=== PATIENT | female | born 1975 | race Hispanic/Latino ===

== ENCOUNTER 2023-01-26 04:20 | Inpatient (IN) | payer SELFPAY ==
[2023-01-26] MEDS ORDERED: Aspirin Chewable 81 MG TAB ONE (04:27)
[2023-01-26] MEDS ORDERED: Nitroglycerin 2% Ointment 1 INCH/1 GM Packet ONE (04:32)
[2023-01-26] MEDS ORDERED: Ondansetron PF 4 MG/2 ML Vial ONE ×2 (04:32→06:12)
[2023-01-26] MEDS ORDERED: Morphine 4 MG/ML VIAL ONE (04:33)
[2023-01-26 04:43] LABS: #Eosinphils 0.1 thou/uL (0.0-0.7); #Monocytes 0.6 thou/uL (0.11-0.59); #Neutrophils 8.1 thou/uL (1.40-6.50); %Basophils 0.2 % (0.0-1.0); %Eosinophils 1.3 % (0.0-10.0); %Lymphocytes 16.6 % (21.0-51.0); %Monocytes 5.5 % (0.0-10.0); %Neutrophils 75.9 % (42.0-75.0); Hemoglobin 10.8 g/dL (12.0-16.0); Mean Corpuscular HGB CONC 31.1 g/dL (32.0-36.0); Mean Corpuscular Volume 89.9 fl (78.0-98.0); Mean Platelet Volume 10.1 fL (7.4-10.4); Platelet Count 389 10x3/uL (130-400); RBC Distribution Width 15.2 % (11.5-14.5); Red Blood Cell (RBC) Count 3.86 mill/uL (4.20-5.40); White Blood Cell (WBC) Count 10.7 10x3/uL (4.8-10.8)
[2023-01-26] MEDS ORDERED: Heparin 10,000 UNITS/ 10 ML VIAL ONE ×2 (04:50→11:59)
[2023-01-26] MEDS ORDERED: Heparin 25,000 UNITS/D5W 500 ml bag ONE (04:50)
[2023-01-26] MEDS ORDERED: LORazepam 2 MG/ML SYR.(CARPUJECT) ONE (04:51)
[2023-01-26] MEDS ORDERED: Loperamide HCl 2 MG CAP ONE (04:51)
[2023-01-26] MEDS ORDERED: fentaNYL 50 mcg/mL 1 mL Vial ONE ×2 (04:56→11:58)
[2023-01-26 05:14] LABS: ALT (SGPT) 22 U/L (8-55); AST (SGOT) 16 U/L (5-34); Albumin 4.1 g/dL (3.5-5.0); Alkaline Phosphatase 99 U/L (40-110); Anion Gap 13 mmol/L (10-20); BUN (Urea Nitrogen) 12 mg/dL (7.0-18.7); Bilirubin, Total Less than 0.2 mg/dL (0.2-1.2); CK (CPK) 87 U/L (29-168); Calc. Creatinine Clearance 0 mL/min (70-130); Carbon Dioxide 23 mmol/L (22-29); Chloride 103 mmol/L (98-107); Estimated GFR 106; Globulin 3.1 g/dL (2.4-3.5); Glucose 151 mg/dL (70-105); Lipase 25 U/L (8-78); Protein, Total 7.2 g/dL (6.0-8.3); Sodium 135 mmol/L (136-145)
[2023-01-26 05:28] LABS: INR-International Normal Ratio 0.9; PTT 24.2 sec (22.9-36.1); Prothrombin Time 12.3 sec (12.0-14.7)
[2023-01-26 08:31] VITALS: BMI 27.9
[2023-01-26] MEDS ORDERED: HYDROcodone/Acetaminophen 5/325 mg Tablet PO PRN ×2 (08:47)
[2023-01-26] MEDS ORDERED: Bisacodyl 5 MG TAB PO PRN (08:47)
[2023-01-26] MEDS ORDERED: Heparin 25,000 units/D5W 500 ML IVPB SCH (09:00)
[2023-01-26] MEDS ORDERED: Heparin 10,000 UNITS/ 10 ML VIAL SLOW IVP SCH (09:00)
[2023-01-26 09:23] LABS: Amphetamine Not Detected (NotDetected); Barbiturates Screen Not Detected (NotDetected); Benzodiazepine Screen Detected (NotDetected); Cocaine Metabolite Screen Detected (NotDetected); Methadone Not Detected (NotDetected); Methamphetamine Not Detected (NotDetected); Opiate Screen Detected (NotDetected); Oxycodone Screen Not Detected (NotDetected); Phencyclidine (PCP) Not Detected (NotDetected); THC/Cannabinoid Screen Not Detected (NotDetected); Tricyclic Screen Not Detected (NotDetected)
[2023-01-26 09:29] LABS: Troponin I 1.133 ng/mL (< 0.028)
[2023-01-26] MEDS ORDERED: ALPRAZolam 0.5 MG TAB PO PRN (09:30)
[2023-01-26 09:56] LABS: Platelet Count 294 10x3/uL (130-400)
[2023-01-26] MEDS ORDERED: Communication Order-Pharmacy FS SCH (10:00)
[2023-01-26] MEDS: Sodium Chloride 0.9% 1,000 ML IV SCH ×2 (10:40→20:39)
[2023-01-26] MEDS: Nicotine 21 MG PATCH TD SCH (10:40)
[2023-01-26] MEDS ORDERED: Ondansetron PF 4 MG/2 ML Vial IVP PRN (10:57)
[2023-01-26] MEDS ORDERED: Lidocaine 1% (PF) 30 ML VIAL ONE ×2 (11:20)
[2023-01-26 11:55] LABS: Hemoglobin A1c 5.2 % (4.0-6.0)
[2023-01-26] MEDS ORDERED: Midazolam HCl 2 mg/2 ml Vial ONE (11:58)
[2023-01-26] MEDS ORDERED: Nitroglycerin 50 MG/250 ML BOT 0 ML ONE (11:59)
[2023-01-26] MEDS ORDERED: Adenosine 6 MG/2 ML VIAL ONE (11:59)
[2023-01-26 12:24] LABS: Troponin I 1.251 ng/mL (< 0.028)
[2023-01-26] MEDS ORDERED: Verapamil 5 MG/2 ML VIAL ONE (12:45)
[2023-01-26] MEDS ORDERED: Sodium Chloride 0.9% 1,000 ML IV SCH (13:30)
[2023-01-26 15:02] LABS: Critical Call Chem Troponin I RESULT DECREASING; Troponin I 1.226 ng/mL (< 0.028)
[2023-01-26] MEDS ORDERED: Iopamidol 370 76% 100 ML VIAL ONE (15:31)
[2023-01-26] MEDS: Acetaminophen 325 MG TAB PO PRN ×2 (17:47→23:57)
[2023-01-26] MEDS: Metoprolol Tartrate 25 MG TAB PO SCH (18:51)
[2023-01-26] MEDS ORDERED: Atorvastatin Calcium 20 MG TAB PO SCH (21:00)
[2023-01-27 04:03] LABS: #Eosinphils 0.1 thou/uL (0.0-0.7); #Monocytes 0.6 thou/uL (0.11-0.59); #Neutrophils 7.7 thou/uL (1.40-6.50); %Basophils 0.4 % (0.0-1.0); %Eosinophils 1.4 % (0.0-10.0); %Lymphocytes 13.4 % (21.0-51.0); %Monocytes 5.8 % (0.0-10.0); %Neutrophils 78.6 % (42.0-75.0); Hemoglobin 10.5 g/dL (12.0-16.0); Mean Corpuscular HGB CONC 31.3 g/dL (32.0-36.0); Mean Corpuscular Volume 89.6 fl (78.0-98.0); Mean Platelet Volume 10.6 fL (7.4-10.4); Platelet Count 308 10x3/uL (130-400); RBC Distribution Width 15.3 % (11.5-14.5); Red Blood Cell (RBC) Count 3.75 mill/uL (4.20-5.40); White Blood Cell (WBC) Count 9.8 10x3/uL (4.8-10.8)
[2023-01-27 04:41] LABS: ALT (SGPT) 22 U/L (8-55); AST (SGOT) 22 U/L (5-34); Albumin 3.8 g/dL (3.5-5.0); Alkaline Phosphatase 85 U/L (40-110); Anion Gap 12 mmol/L (10-20); BUN (Urea Nitrogen) 7 mg/dL (7.0-18.7); Bilirubin, Total 0.4 mg/dL (0.2-1.2); Calc. Creatinine Clearance 120 mL/min (70-130); Calcium 8.9 mg/dL (7.8-10.44); Carbon Dioxide 24 mmol/L (22-29); Chloride 104 mmol/L (98-107); Estimated GFR 109; Globulin 2.9 g/dL (2.4-3.5); Glucose 105 mg/dL (70-105); Protein, Total 6.7 g/dL (6.0-8.3); Sodium 136 mmol/L (136-145)
[2023-01-27] MEDS: Sodium Chloride 0.9% 1,000 ML IV SCH (05:51)
[2023-01-27 08:14] VITALS: TEMP 98
[2023-01-27] MEDS ORDERED: Aspirin Chewable 81 MG TAB PO SCH (09:00)
[2023-01-27] MEDS ORDERED: Aspirin 325 mg Enteric Coated Tablet PO SCH (09:00)
[2023-01-27] MEDS: Metoprolol Tartrate 25 MG TAB PO SCH (09:01)
[2023-01-27] MEDS: Nicotine 21 MG PATCH TD SCH (09:39)
[2023-01-27 11:52] VITALS: BP 128/60
== END 2023-01-27 12:20 | disposition home or self-care (01) | DRG 281 ==
LOC: ERS 04:20 → IMCU/EMU 06:05 → 2NO 01-27 04:28
PROVIDERS: ADMIT Student in an Organized Health Care Education/Training Program; ATTEND Internal Medicine
PROC: 4A023N7 Measurement of Cardiac Sampling and Pressure, Left Heart, Percutaneous Approach (ICD-10-PCS; principal; 2023-01-26)
PROC: B2111ZZ Fluoroscopy of Multiple Coronary Arteries using Low Osmolar Contrast (ICD-10-PCS; 2023-01-26)
PROC: B2151ZZ Fluoroscopy of Left Heart using Low Osmolar Contrast (ICD-10-PCS; 2023-01-26)
DX: I25.110 Atherosclerotic heart disease of native coronary artery with unstable angina pectoris (principal); I21.A1 Myocardial infarction type 2; E87.1 Hypo-osmolality and hyponatremia; F41.9 Anxiety disorder, unspecified; F32.A Depression, unspecified; I10 Essential (primary) hypertension; F17.210 Nicotine dependence, cigarettes, uncomplicated; R73.9 Hyperglycemia, unspecified; I08.1 Rheumatic disorders of both mitral and tricuspid valves; Z79.899 Other long term (current) drug therapy
CPT/HCPCS: 36415; 36416; 71045; 80053; 80306; 82550; 83036; 83690; 83880; 84484; 85025; 85379; 85610; 85730; 93005; 93010; 93306; 93458; 96374; 96375; 96376; 99152; C1769; C1894; J0153; J1644; J2001; J2060; J2250; J2270; J2405; J3010; J7050; Q9967

== ENCOUNTER 2024-08-06 19:26 | Inpatient (IN) | payer BC, MEDICAID ==
[2024-08-06 19:54] LABS: #Basophils 0.04 10x3/uL (0.0-0.2); %Basophils 0.5 % (0.0-1.0); %Eosinophils 1.8 % (0.0-10.0); %Lymphocytes 24.7 % (21.0-51.0); %Neutrophils 65.5 % (42.0-75.0); Hematocrit 34.3 % (36.0-47.0); Hemoglobin 11.4 g/dL (12.0-16.0); Mean Corpuscular HGB CONC 33.2 g/dL (32.0-36.0); Mean Corpuscular Hemoglobin 30.3 pg (27.0-31.0); Mean Corpuscular Volume 91.2 fL (78.0-98.0); Mean Platelet Volume 10.4 fL (7.4-10.4); Platelet Count 336 10x3/uL (130-400); RBC Distribution Width 13.8 % (11.5-14.5); Red Blood Cell (RBC) Count 3.76 mill/uL (4.20-5.40)
[2024-08-06 20:16] LABS: INR-International Normal Ratio 0.9; Prothrombin Time 12.3 sec (12.0-14.7)
[2024-08-06 20:17] LABS: PTT 23.5 sec (22.9-36.1)
[2024-08-06 20:18] LABS: ALT (SGPT) 12 U/L (8-55); AST (SGOT) 13 U/L (5-34); Albumin 3.6 g/dL (3.5-5.0); Alkaline Phosphatase 65 U/L (40-110); Anion Gap 14 mmol/L (10-20); BUN (Urea Nitrogen) 17 mg/dL (7.0-18.7); Bilirubin, Total 0.3 mg/dL (0.2-1.2); Calc. Creatinine Clearance 0 mL/min (70-130); Calcium 8.3 mg/dL (7.8-10.44); Carbon Dioxide 22 mmol/L (22-29); Estimated GFR 91; Globulin 3.5 g/dL (2.4-3.5); Glucose 145 mg/dL (70-105); Potassium 3.5 mmol/L (3.5-5.1); Protein, Total 7.1 g/dL (6.0-8.3)
[2024-08-06 20:21] LABS: Troponin I Less than 0.010 ng/mL (< 0.028)
[2024-08-06 20:30] LABS: BHCG - Serum Negative (NEGATIVE); Pregs Control Background? CLEAR/WHITE (CLR/WHITE); Pregs Control Bar Appear? YES (CONTROL BAR)
[2024-08-06 20:48] LABS: Chloride 104 mmol/L (98-107); Sodium 133 mmol/L (136-145)
[2024-08-06] MEDS ORDERED: Famotidine/PF 20 mg/2ml Vial ONE (21:48)
[2024-08-06] MEDS ORDERED: diphenhydrAMINE 50 MG/ML VIAL ONE (21:48)
[2024-08-06] MEDS ORDERED: methylPREDNISolone Sod Succ/PF 125 MG/2 ML VIAL ONE (22:14)
[2024-08-06 23:04] VITALS: BMI 29.3
[2024-08-06 23:18] LABS: Troponin I Less than 0.010 ng/mL (< 0.028)
[2024-08-06] MEDS ORDERED: Acetaminophen 325 MG TAB PO PRN (23:37)
[2024-08-06] MEDS ORDERED: Communication Order-Pharmacy FS SCH (23:37)
[2024-08-06] MEDS ORDERED: Acetaminophen 650 MG Suppository PR PRN (23:37)
[2024-08-06] MEDS ORDERED: hydrALAZINE 20 MG/ML VIAL SLOW IVP PRN (23:37)
[2024-08-06] MEDS ORDERED: Labetalol HCl 100 MG/20 ML VIAL SLOW IVP PRN (23:37)
[2024-08-06] MEDS ORDERED: niCARdipine 25 MG in Sodium Chloride 0.9% 250 ML 250 ML IVPB PRN (23:37)
[2024-08-06] MEDS ORDERED: ALPRAZolam 0.5 MG TAB PO PRN (23:38)
[2024-08-07] MEDS: Metoprolol Tartrate 25 MG TAB PO SCH (20:06)
[2024-08-07] MEDS: Ezetimibe 10 MG TAB PO SCH (20:06)
[2024-08-07] MEDS: Atorvastatin Calcium 40 MG TAB PO SCH (20:07)
[2024-08-07 21:32] LABS: Hemoglobin A1c 5.3 % (4.0-6.0)
[2024-08-07 21:34] LABS: Cardiac Risk 3.4 (Less than 4.5)
[2024-08-07 21:40] LABS: Troponin I Less than 0.010 ng/mL (< 0.028)
[2024-08-10] MEDS: Aspirin 81 mg Enteric Coated Tablet ONE (09:00)
[2024-08-10] MEDS: Aspirin 81 mg Enteric Coated Tablet PO SCH (09:00)
[2024-08-10 11:08] VITALS: TEMP 98.3
[2024-08-10 14:10] VITALS: BP 136/88
== END 2024-08-10 14:45 | disposition home or self-care (01) | DRG 62 ==
LOC: ERS 19:26 → CCU 21:37 → 2SE 08-07 21:38
PROVIDERS: ADMIT Student in an Organized Health Care Education/Training Program; ATTEND Internal Medicine
DX: I63.9 Cerebral infarction, unspecified (principal); G81.94 Hemiplegia, unspecified affecting left nondominant side; I10 Essential (primary) hypertension; E78.5 Hyperlipidemia, unspecified; R29.704 NIHSS score 4; R27.0 Ataxia, unspecified; R47.81 Slurred speech; R29.810 Facial weakness; F41.9 Anxiety disorder, unspecified; F32.A Depression, unspecified; F10.90 Alcohol use, unspecified, uncomplicated; T78.3XXA Angioneurotic edema, initial encounter; Z87.891 Personal history of nicotine dependence
CPT/HCPCS: 36415; 36416; 70450; 70496; 70498; 70551; 71045; 80053; 80061; 83036; 84443; 84484; 84703; 85025; 85610; 85730; 93005; 93306; 93970; 94760; 96374; 96375; J1200; J2919; J3490

== ENCOUNTER 2024-08-12 09:07 | Inpatient (IN) | payer BC ==
[2024-08-12] MEDS ORDERED: Metoclopramide HCl 10 MG (2 mL) VIAL ONE (10:02)
[2024-08-12] MEDS ORDERED: diphenhydrAMINE 50 MG/ML VIAL ONE (10:02)
[2024-08-12 10:14] LABS: #Basophils 0.03 10x3/uL (0.0-0.2); %Basophils 0.5 % (0.0-1.0); %Eosinophils 2.3 % (0.0-10.0); %Lymphocytes 25.3 % (21.0-51.0); %Monocytes 8.3 % (0.0-10.0); %Neutrophils 62.9 % (42.0-75.0); Hematocrit 38.5 % (36.0-47.0); Hemoglobin 12.7 g/dL (12.0-16.0); Mean Corpuscular Hemoglobin 30.7 pg (27.0-31.0); Mean Platelet Volume 10.3 fL (7.4-10.4); Platelet Count 328 10x3/uL (130-400); RBC Distribution Width 13.1 % (11.5-14.5); Red Blood Cell (RBC) Count 4.14 mill/uL (4.20-5.40)
[2024-08-12 10:31] LABS: ALT (SGPT) 11 U/L (8-55); AST (SGOT) 13 U/L (5-34); Albumin 3.7 g/dL (3.5-5.0); Alkaline Phosphatase 64 U/L (40-110); Anion Gap 12 mmol/L (10-20); BUN (Urea Nitrogen) 12 mg/dL (7.0-18.7); Bilirubin, Total 0.3 mg/dL (0.2-1.2); Calc. Creatinine Clearance 0 mL/min (70-130); Calcium 8.9 mg/dL (7.8-10.44); Carbon Dioxide 24 mmol/L (22-29); Chloride 105 mmol/L (98-107); Estimated GFR 105; Globulin 3.6 g/dL (2.4-3.5); Glucose 94 mg/dL (70-105); Potassium 4.3 mmol/L (3.5-5.1); Protein, Total 7.3 g/dL (6.0-8.3); Sodium 137 mmol/L (136-145)
[2024-08-12] MEDS ORDERED: Clopidogrel Bisulfate 300 MG TAB ONE (11:25)
[2024-08-12] MEDS ORDERED: Aspirin Chewable 81 MG TAB ONE (11:26)
[2024-08-12] MEDS ORDERED: Acetaminophen 650 MG Suppository PR PRN (11:53)
[2024-08-12] MEDS ORDERED: Calcium Carbonate 500 MG ChewTAB PO PRN (11:53)
[2024-08-12] MEDS ORDERED: Senokot S 8.6-50 MG TAB PO PRN (11:53)
[2024-08-12] MEDS ORDERED: Ondansetron PF 4 MG/2 ML Vial IVP PRN (11:53)
[2024-08-12] MEDS ORDERED: hydrALAZINE 20 MG/ML VIAL SLOW IVP PRN (11:53)
[2024-08-12 12:00] VITALS: BMI 29.2
[2024-08-12] MEDS ORDERED: ALPRAZolam 0.25 MG TAB ONE ×2 (12:14→12:21)
[2024-08-12] MEDS: ALPRAZolam 0.5 MG TAB PO PRN (12:23)
[2024-08-12] MEDS: Acetaminophen 325 MG TAB PO PRN (16:17)
[2024-08-12] MEDS: Ibuprofen 800 MG TAB PO PRN (21:37)
[2024-08-12] MEDS: Ezetimibe 10 MG TAB PO SCH (21:37)
[2024-08-13 00:43] LABS: Amphetamine Not Detected (NotDetected); Barbiturates Screen Not Detected (NotDetected); Benzodiazepine Screen Detected (NotDetected); Cocaine Metabolite Screen Not Detected (NotDetected); Methadone Not Detected (NotDetected); Methamphetamine Not Detected (NotDetected); Opiate Screen Not Detected (NotDetected); Oxycodone Screen Not Detected (NotDetected); Phencyclidine (PCP) Not Detected (NotDetected); THC/Cannabinoid Screen Not Detected (NotDetected); Tricyclic Screen Not Detected (NotDetected)
[2024-08-13 04:52] LABS: #Basophils 0.03 10x3/uL (0.0-0.2); %Basophils 0.4 % (0.0-1.0); %Eosinophils 2.3 % (0.0-10.0); %Lymphocytes 27.2 % (21.0-51.0); %Monocytes 8.7 % (0.0-10.0); %Neutrophils 61.1 % (42.0-75.0); Hematocrit 36.3 % (36.0-47.0); Hemoglobin 11.8 g/dL (12.0-16.0); Mean Corpuscular HGB CONC 32.5 g/dL (32.0-36.0); Mean Corpuscular Hemoglobin 30.1 pg (27.0-31.0); Mean Corpuscular Volume 92.6 fL (78.0-98.0); Mean Platelet Volume 10.3 fL (7.4-10.4); Platelet Count 307 10x3/uL (130-400); Red Blood Cell (RBC) Count 3.92 mill/uL (4.20-5.40)
[2024-08-13 05:20] LABS: Anion Gap 13 mmol/L (10-20); BUN (Urea Nitrogen) 9 mg/dL (7.0-18.7); Calc. Creatinine Clearance 125 mL/min (70-130); Calcium 8.5 mg/dL (7.8-10.44); Carbon Dioxide 22 mmol/L (22-29); Chloride 104 mmol/L (98-107); Estimated GFR 108; Glucose 94 mg/dL (70-105); Potassium 3.8 mmol/L (3.5-5.1); Sodium 135 mmol/L (136-145)
[2024-08-13 06:06] LABS: INR-International Normal Ratio 0.9; PTT 26.3 sec (22.9-36.1); Prothrombin Time 12.5 sec (12.0-14.7)
[2024-08-13 06:09] LABS: D-Dimer Test 0.27 mcg/mL (0.27-0.43)
[2024-08-13] MEDS: Enoxaparin 40 MG (0.4 mL) SYRINGE SC SCH (09:12)
[2024-08-13] MEDS: Clopidogrel Bisulfate 75 MG TAB PO SCH (09:13)
[2024-08-13] MEDS: Aspirin 81 mg Enteric Coated Tablet PO SCH (09:13)
[2024-08-13] MEDS: Fioricet 325/50/40 mg Tablet PO PRN (15:37)
[2024-08-13] MEDS: Rosuvastatin 20 MG TAB PO SCH (20:19)
[2024-08-13 21:25] LABS: Pregnancy Test - Urine (BHCG) Negative (Negative); Pregu Control Background? CLEAR/WHITE (CLR/WHITE); Pregu Control Bar Appear? YES (CONTROL BAR); Specific Gravity 1.021 (1.002-1.036)
[2024-08-14] MEDS ORDERED: Midazolam HCl 2 mg/2 ml Vial ONE (07:16)
[2024-08-14 13:47] LABS: ANA Symphony (Qualitative) Negative (Negative); ANA Symphony (Quantitative) 0.2 Ratio (< 0.7 Negative); Cardiolipin IgA Ab 4.3 APL-U/mL (<14 Negative); Cardiolipin IgG Ab Less than 0.5 GPL-U/mL (<10 Negative); Cardiolipin IgM Ab 5.8 MPL-U/mL (<10 Negative); EliA APS New Method **** NEW METHOD ****; beta-2-Glycoprotein I IgA Ab 1.8 U/mL (<7 Negative); beta-2-Glycoprotein I IgG Ab Less than 0.8 U/mL (<7 Negative); beta-2-Glycoprotein I IgM Abs 3.1 U/mL (<7 Negative); dsDNA IgG Antibody 1.3 IU/mL (<10 Negative)
[2024-08-14] MEDS: Valproate Sodium 500 MG in Sodium Chloride 0.9% 100 ML IVPB SCH (20:24)
[2024-08-14] MEDS: Prochlorperazine 10 MG/2 ML VIAL IVP SCH (20:24)
[2024-08-14] MEDS: Magnesium 2 GM/50 ML(in water) 2 GM in Premix 1 BAG IVPB SCH (20:24)
[2024-08-15] MEDS: Ondansetron ODT 4 MG TAB PO PRN (08:30)
[2024-08-15 12:44] VITALS: BP 120/78; TEMP 98
== END 2024-08-15 15:40 | disposition home or self-care (01) | DRG 66 ==
LOC: ERS 09:07 → ERHOLD 11:21 → 2SE 14:43 → OBSVTOIN 08-13 07:55
PROVIDERS: ADMIT Family Medicine; ATTEND Internal Medicine
PROC: B24BZZ4 Ultrasonography of Heart with Aorta, Transesophageal (ICD-10-PCS; principal; 2024-08-14)
DX: I63.9 Cerebral infarction, unspecified (principal); I25.2 Old myocardial infarction; I25.10 Atherosclerotic heart disease of native coronary artery without angina pectoris; F41.9 Anxiety disorder, unspecified; F32.A Depression, unspecified; I10 Essential (primary) hypertension; Z87.891 Personal history of nicotine dependence; Z98.891 History of uterine scar from previous surgery; R29.700 NIHSS score 0; Z79.82 Long term (current) use of aspirin; Z79.899 Other long term (current) drug therapy; R47.81 Slurred speech
CPT/HCPCS: 36415; 70450; 70551; 80048; 80053; 80306; 81025; 83090; 85025; 85300; 85303; 85306; 85307; 85598; 85610; 85613; 85730; 86038; 86146; 86147; 86225; 93005; 93306; 93312; 96365; 96366; 96375; G0378; J0780; J1200; J1650; J2250; J2765; J3475; Q0162

== ENCOUNTER 2024-09-27 12:36 | Emergency (ER) | payer BC ==
[2024-09-27 14:08] LABS: #Basophils 0.03 10x3/uL (0.0-0.2); %Basophils 0.5 % (0.0-1.0); %Eosinophils 1.7 % (0.0-10.0); %Lymphocytes 15.7 % (21.0-51.0); %Monocytes 8.5 % (0.0-10.0); %Neutrophils 72.9 % (42.0-75.0); Hematocrit 33.2 % (36.0-47.0); Hemoglobin 10.6 g/dL (12.0-16.0); Mean Corpuscular HGB CONC 31.9 g/dL (32.0-36.0); Mean Corpuscular Hemoglobin 29.4 pg (27.0-31.0); Mean Corpuscular Volume 92.2 fL (78.0-98.0); Mean Platelet Volume 10.4 fL (7.4-10.4); Platelet Count 237 10x3/uL (130-400); RBC Distribution Width 12.3 % (11.5-14.5)
[2024-09-27 14:29] LABS: ALT (SGPT) 18 U/L (8-55); AST (SGOT) 17 U/L (5-34); Albumin 3.9 g/dL (3.5-5.0); Alkaline Phosphatase 81 U/L (40-110); Anion Gap 12 mmol/L (10-20); BUN (Urea Nitrogen) 10 mg/dL (7.0-18.7); Bilirubin, Total 0.3 mg/dL (0.2-1.2); Calc. Creatinine Clearance 0 mL/min (70-130); Calcium 8.7 mg/dL (7.8-10.44); Carbon Dioxide 24 mmol/L (22-29); Chloride 106 mmol/L (98-107); Estimated GFR 112; Globulin 3.2 g/dL (2.4-3.5); Glucose 86 mg/dL (70-105); Lipase 21 U/L (8-78); Potassium 3.7 mmol/L (3.5-5.1); Protein, Total 7.1 g/dL (6.0-8.3); Sodium 138 mmol/L (136-145)
[2024-09-27 14:33] LABS: Troponin I Less than 0.010 ng/mL (< 0.028)
[2024-09-27] MEDS ORDERED: Aspirin Chewable 81 MG TAB ONE (14:35)
[2024-09-27] MEDS ORDERED: Acetaminophen 500 MG TAB ONE (14:36)
[2024-09-27 14:37] LABS: Bacteria/HPF None Seen HPF (None Seen); Bilirubin Negative (Negative); Blood, Urine Negative (Negative); CAUTI Indications for Culture Dysuria,urgency,freq; Clarity Clear (Clear); Glucose, Urine (Dipstick) Normal (Negative); Ketone, Urine Negative (Negative); Leukocyte Negative Leu/uL (Negative); Nitrite Negative (Negative); Protein, Urine (Dipstick) Negative (Neg-Trace); RBC/HPF 0-3 HPF (0-3); Specific Gravity, Urine 1.009 (1.002-1.036); Squamous Epithelial None Seen HPF (0-3); Urobilinogen Normal mg/dL (Less than 2); WBC/HPF 0-3 HPF (0-3)
[2024-09-27 14:39] LABS: Urine Culture Reflex No No
[2024-09-27 16:18] LABS: Troponin I Less than 0.010 ng/mL (< 0.028)
== END 2024-09-27 17:05 | disposition home or self-care (01) ==
LOC: ERS 12:36
DX: R07.89 Other chest pain (principal); R42 Dizziness and giddiness; I10 Essential (primary) hypertension; E78.00 Pure hypercholesterolemia, unspecified; I25.2 Old myocardial infarction; F17.210 Nicotine dependence, cigarettes, uncomplicated; Z79.899 Other long term (current) drug therapy; Z86.73 Personal history of transient ischemic attack (TIA), and cerebral infarction without residual deficits
CPT/HCPCS: 36415; 70450; 71045; 80053; 81001; 83690; 83735; 83880; 84484; 85025; 93005